=== PATIENT | female | born 1990 | race Two or more races ===

== ENCOUNTER 2025-09-22 15:12 | Inpatient (IN) | payer MEDICAID, OTHER ==
[~2025-09-22] VITALS: Ht 170.2 cm; Wt 62.3 kg
[2025-09-22] MEDS: SODIUM CHLORIDE 0.9% 1,000 ML IV ONE ×3 (16:00→22:23)
--- NOTE | 2025-09-22 16:00 | ED.PDOC ---
SOB-HPI HPI Comments 34 y/o F, presents to the ED for CC of shortness of breath. Patient states, she has been experiencing shortness of breath with associated chest pain sudden onset, this morning (09/22/25). Patient reports, to have had flu-like symptoms x1week prior to commencement of symptoms. Patient endorses, shortness of breath to worsen with ambulation. Patient denies cough, fever, chills, or palpitations. No other symptoms or modifying factors are present at this time. Chief Complaint: Shortness of Breath Time Seen by MD: 15:50 Reviewed notes: Nurses Notes, Medications, Allergies Mode of Arrival: EMS Severity: Moderate Timing: Hours Duration: Since onset Context: At Rest PE Risk Factors: None History of: None Prehospital treatment: None Modifying Factors: Nothing Associated Signs and Symptoms: None Location: Substernal Past Medical History PAST MEDICAL HISTORY: Denies Surgical History: Denies all surgeries PLATING TECHNICIAN History: Denies all PLATING TECHNICIAN Hx Family History Family History: Unknown Social History Smoker: Non-Smoker Alcohol: Denies ETOH Use Drugs: Denies Drug Use Lives In: Home Constitutional: reports: malaise; denies: chills, diaphoresis, fatigue, fever, sweats, weakness, others EENTM: denies: blurred vision, double vision, ear bleeding, ear discharge, ear drainage, ear pain, ear ringing, eye pain, eye redness, hearing loss, mouth pain, mouth swelling, nasal discharge, nose bleeding, nose congestion, nose pain, photophobia, tearing, throat pain, throat swelling, voice changes, others Respiratory: reports: shortness of breath; denies: cough, hemoptysis, orthopnea, SOB at rest, SOB with excertion, stridor, wheezing, others Cardiovascular: reports: chest pain; denies: dizzy spells, diaphoresis, Dyspnea on exertion, edema, irregular heart beat, left arm pain, lightheadedness, palpitations, PND, syncope, others Gastrointestinal: denies: abdomen distended, abdominal pain, blood streaked bowels, constipated, diarrhea, dysphagia, difficulty swallowing, hematemesis, melena, nausea, poor appetite, poor fluid intake, rectal bleeding, rectal pain, vomiting, others Genitourinary: denies: abnormal vagina bleeding, burning, dyspareunia, dysuria, flank pain, frequency, hematuria, incontinence, pain, , vagina discharge, urgency, others Neurological: denies: dizziness, fainting, headache, left sided numbness, left sided weakness, numbness, paresthesia, pre-existing deficit, right sided numbness, right sided weakness, seizure, speech problems, tingling, tremors, weakness, others Musculoskeletal: denies: back pain, gout, joint pain, joint swelling, muscle pain, muscle stiffness, neck pain, others Integumetry: denies: bruises, change in color, change in hair/nails, dryness, laceration, lesions, lumps, rash, wounds, others Allergic/Immunocompromised: denies: Difficulty Healing, Frequent Infections, Hives, Itching, others Hematologic/Lymphatic: denies: anemia, blood clots, easy bleeding, easy bruising, swollen glands, others Endocrine: denies: excessive hunger, excessive sweating, excessive thirst, excessive urination, flushing, intolerance to cold, intolerance to heat, unexplained weight gain, unexplained weight loss, others Psychiatric: denies: anxiety, bipolar disorder, depression, hopeless, panic disorder, schizophrenia, sleepless, suicidal, others All Other Systems: Reviewed and Negative Physical Exam General Appearance: Moderate Distress HEENT: Normal ENT Inspection, Pharynx Normal, TMs Normal Neck: Full Range of Motion, Non-Tender, Normal, Normal Inspection Respiratory: Other (Coarse breath sounds) Cardiovascular: No Edema, No JVD, No Murmur, No Gallop, Normal Peripheral Pulses, Tachycardia Breast Exam: Deferred Gastrointestinal: No Organomegaly, Non Tender, No Pulsatile Mass, Normal Bowel Sounds, Soft Genitalia: Deferred Pelvic: Deferred Rectal: Deferred Extremities: No calf tenderness, Normal capillary refill, Normal inspection, Normal range of motion, Non-tender, No pedal edema Musculoskeletal : Apperance: Normal Neurologic: Alert, 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 Was a procedure done?: No Differential Dx Differential Diagnosis: Anxiety, Asthma, Bronchitis, Pneumonia, Pulmonary Embolism, Pharyngitis, URI X-Ray, Labs, Meds, VS Vital Signs Date Time Temp Pulse Resp B/P (MAP) Pulse Ox O2 Delivery O2 Flow Rate FiO2 09/22/25 15:19 99.0 122 20 127/82 99 99.0 Patient alert. Complaining of shortness a breath. Unable to ambulate without being short of breath. Tachycardia. Establish intravenous access. Was given fluids. Was given steroid. Was given breathing treatment. Was given Rocephin. Was given azithromycin. Explained to the patient that she will be admitted for possible pneumonia. Time of 1ST Reevaluation: 16:20 Reevaluation 1ST: Unchanged Patient Education/Counseling: Diagnosis, Treatment Family Education/Counseling: No Family Present SEPSIS Sepsis Screen Date sepsis recognized/suspect: Sep 22, 2025 Time Sepsis recognized/suspect: 1520 Recent Procedure: No On Antibiotic Therapy: No Respiratory Rate >20: No Heart Rate >90: Yes Temp<36 C (96.8 F) or >38.3 C: No SBP <90 or MAP <65 mmHG: No New Acute Mental Status Change: No Is the patient on CPAP, BIPAP,: No Physician Orders Chest Portable (09/22/25 15:17) Troponin-I Hs (09/22/25 15:54) Complete Blood Count (09/22/25 15:54) Urinalysis (09/22/25 15:54) Basic Metabolic Panel (09/22/25 15:54) Rapid Influenza A&B (09/22/25 15:54) Sodium Chloride 0.9% (09/22/25 16:00) Ceftriaxone 1gm/50ml (Rocephin) (09/22/25 16:00) Azithromycin 500mg/ 250ml (Zithromax 50 (09/22/25 16:00) Vital Signs Date Time Temp Pulse Resp B/P (MAP) Pulse Ox O2 Delivery O2 Flow Rate FiO2 09/22/25 15:19 99.0 122 20 127/82 99 99.0 Departure 1 Departure Time of Disposition: 16:03 Impression: Primary Impression: Acute respiratory distress Additional Impression: Pneumonia Qualified Codes: J18.9 - Pneumonia, unspecified organism Disposition: ADMITTED INPATIENT Admit to: Med Surg Condition: Guarded Critical Care Note Critical Care Time?: Yes (90 min-critical care time only) Stability Stability form required: No Heart Score Heart Score: Heart Score Response (Comments) Value History N/A 0 EKG N/A 0 Age N/A 0 Risk Factors N/A 0 Troponin N/A 0 Total 0 I personally scribed for MYKEL ROMANO MD ([email or web address]) on 09/22/25 at 16:00. Electronically submitted by Rupa Sunshine ([email or web address]). MYKEL ROMANO MD Sep 22, 2025 16:00
--- NOTE | 2025-09-22 16:01 | DVH ---
CHEST RADIOGRAPH Indication: sob Technique: Single frontal view of the chest was obtained Comparison: None FINDINGS: Lines and Tubes: None Lungs: There is a 2.5 cm irregular density in the right upper lung field. Pulmonary nodule versus chr onic disease. Consider CT chest if of clinical concern. Pleura: No effusion. No pneumothorax. Cardiomediastinal contours: Unremarkable Bones: No acute osseous abnormality. IMPRESSION: 1. 2.5 cm irregular pulmonary density right upper lung field may represent fortuitous confluence of b gianluca and pulmonary densities. Can not exclude pulmonary nodule. Consider comparing with previous [facility] x-rays and/or CT of the chest.
[2025-09-22] MEDS: ALBUTEROL SULF 2.5 MG/0.5ML(0.5%) NEB SOLN NEB ONE ×2 (16:09→22:35)
[2025-09-22] MEDS: IPRATROPIUM BROM 0.5 MG/2.5ML INH SOL NEB ONE ×2 (16:09→22:36)
[2025-09-22] MEDS: LORazepam 0.5 MG TAB PO ONE (16:51)
[2025-09-22 17:17] LABS: Hematocrit 41.8 % (36.0-46.0); Hemoglobin 14.2 g/dL (12.2-16.2); Mean Corpuscular Hemoglobin 29.6 pg (28.0-32.0); Mean Corpuscular Volume 87.1 fL (80.0-100.0); Nucleated Red Blood Cells % 0.1 %
[2025-09-22 17:32] LABS: Chloride 105 mmol/L (98-107); Sodium 142 mmol/L (136-145)
[2025-09-22 17:33] LABS: Anion Gap 20 (5-15)
[2025-09-22 17:34] LABS: Calcium 9.7 mg/dL (8.7-10.4)
[2025-09-22] MEDS: LORazepam 2MG/ML-1ML VIAL IV ONE (17:36)
[2025-09-22 17:39] LABS: BUN/Creatinine Ratio 6.2 (10.0-20.0)
[2025-09-22 17:42] LABS: Carbon Dioxide 17 mmol/L (20-31); Glucose 122 mg/dL (74-106); Potassium 2.8 mmol/L (3.5-5.1)
[2025-09-22 17:45] LABS: Blood Urea Nitrogen 7 mg/dL (9-23)
[2025-09-22] MEDS: AZITHROMYCIN 500MG/ 250ML 250 ML IV ONE (17:45)
[2025-09-22] MEDS: methylPREDNISolone SOD SUCC 125 MG/2 ML VL IV ONE (17:46)
[2025-09-22 18:16] VITALS: PULSE 107; RESP 18; O2SAT 95
[2025-09-22 19:02] LABS: Lactic Acid w/Reflex 5.0 mmol/L (0.4-2.0)
[2025-09-22 19:06] LABS: COVID19 ANTIGEN SOFIA FIA NEGATIVE (NEGATIVE)
[2025-09-22] MEDS: POTASSIUM CHL 20 Meq TABLET PO ONE (19:08)
[2025-09-22] MEDS ORDERED: ACETAMINOPHEN 325 MG TAB PO PRN (21:30)
[2025-09-22] MEDS ORDERED: IPRATROPIUM BROM 0.5 MG/2.5ML INH SOL NEB PRN (21:30)
[2025-09-22] MEDS ORDERED: HYDROcodone-ACET 5/325MG TAB PO PRN (21:30)
[2025-09-22] MEDS ORDERED: ALBUTEROL SULF 2.5 MG/0.5ML(0.5%) NEB SOLN NEB PRN (21:30)
[2025-09-22] MEDS ORDERED: HYDROmorphone HCL 2 MG/ML VL/or syr IV PRN (21:30)
[2025-09-22 22:00] LABS: Urine Protein, UAD Negative (Negative)
[2025-09-22] MEDS: POTASSIUM CHL 20MEQ/100ML 100 ML IV SCH (22:22)
[2025-09-22] MEDS: ENOXAPARIN SOD 40 MG/0.4 ML SYRINGE SC SCH (22:22)
[2025-09-22 22:26] LABS: Alanine Aminotransferase 13.0 U/L (7-40); Albumin 4.3 g/dL (3.2-4.8); Alkaline Phosphatase 95.0 U/L (46-116); Total Protein 6.8 g/dL (5.7-8.2)
[2025-09-22 22:28] LABS: Amphetamine Screen, Urine Neg (NEGATIVE); Barbiturate Scree,Urine Neg (NEGATIVE); Benzodiazephine Screen, Urine Neg (NEGATIVE); Cannabinoid Screen, Urine Pos (NEGATIVE); Cocaine Screen, Urine Neg (NEGATIVE); Opiate Scree,Urine Neg (NEGATIVE); Phencyclidine Screen, Urine Neg (NEGATIVE)
[2025-09-22 22:28] LABS: Bilirubin, Direct 0.4 mg/dL (<0.3); Bilirubin, Total 1.3 mg/dL (0.2-1.0); Magnesium 1.3 mg/dL (1.6-2.6)
[2025-09-22] MEDS: DOXYCYCLINE 100MG/100ML 100 ML IV SCH (22:34)
[2025-09-22 23:10] VITALS: BP 90/55; PULSE 105; RESP 17; TEMP 98.9; O2SAT 98
--- NOTE | 2025-09-22 23:42 | DVH ---
CT Chest without intravenous contrast INDICATION: sob TECHNIQUE: Multidetector spiral CT of the chest was performed from the lung apices to the upper abdom en. Axial, coronal and sagittal multiplanar reformats were performed. Radiation Dose : 1. Chest: CTDI volume is 6.16 mGy. Dose-length product is 264.4 mGy*cm The dose indicators for CT are the volume Computed Tomography (CT) Dose Index (CTDIvol) and the Dose Length Product (DLP), and are measured in units of mGy and mGy-cm, respectively. These indicators are not patient dose, but values generated from the CT scanner acquisition factors. The report includes radiation exposure data for exposures received during this examination. Comparison: XY CHEST PORTABLE on DOS: 09/22/25 Findings: Lower neck: Unremarkable. Lungs: There are multifocal small airspace opacities in the right upper and lower lobes as well as a small rounded groundglass opacity in the left lower lobe. Pleura: No pleural effusion or pneumothorax. Heart/Vascular Structures: Normal heart size. No pericardial effusion. Lymph Nodes: No evidence of lymphadenopathy. Musculoskeletal: No abnormality demonstrated. Soft tissues: Unremarkable. Visualized Upper abdomen: Unremarkable. IMPRESSION: Multifocal small airspace opacities in right upper and lower lobes as well as small groundglass opac ity in left lower lobe, nonspecific but most likely representing pneumonia. Radiation optimization: All CT scans at this facility use at least one of these dose optimization cuate hniques: automated exposure control mA and/or kV adjustment per patient size (includes targeted exam s where dose is matched to clinical indication) or iterative reconstruction.
[2025-09-23] VITALS (11 sets, daily range): BP systolic 101–121; BP diastolic 63–85; PULSE 80–105; RESP 16–18; TEMP 96.8–98.4; O2SAT 94–99
--- NOTE | 2025-09-23 01:25 | DVHHPRES ---
History of Present Illness Resident Creating Document: KASSANDRA YANEZ RESIDENT History of Present Illness 34-year-old female with no significant past medical history has come to the emergency via ambulance with chief complaints of shortness of breath and chest pain. Patient reports that she awoke today morning with sudden shortness of breath, which has been worsening throughout the day followed by chest pain a couple of hours later, which was sudden, squeezing and cramping type, associated with cramping of all the muscles in her body including her hands and feet, constant since 2:00 p.m., lasting over 10 hours, 9.5/10 in intensity, worsening with inhalation and exhalation, with no relieving factors. Patient also reports that she has had wet cough and body ache for the past week after being exposed to her children who have been sick recently as well. She denies any palpitations, nausea, vomiting, fever, chills. On admission patient's vitals were temp 98.9, pulse 99, respiratory rate 22, BP 106/5 9, SpO2 98. We are admitting the patient for further workup and management. PMH: None PSH: None Family history: Reviewed and noncontributory Social history: patient denies drink alcohol or smoking cigarettes but admits to smoking marijuana 5-6 puffs per day Allergies: Patient can not recall PCP: [place], patient has not been to a PCP in a long while Code status: Full code Review of Systems Constitutional: Yes: Malaise; No: Fever, Chills, Sweats, Weakness, Other Eyes: No: Pain, Vision change, Conjunctivae inflammation, Eyelid inflammation, Other, Redness ENT: No: Ear pain, Ear discharge, Nose pain, Nose discharge, Nose congestion, Mouth pain, Mouth swelling, Throat pain, Throat swelling, Other Respiratory: Cough, Shortness of breath; No: Dry, SOB with excertion, Wheezing, Hemoptysis, Pleuritic Pain, Sputum, Wheezing, Other Cardiovascular: Chest Pain; No: Palpitations, Orthopnea, Paroxysmal Noc. Dyspnea, Edema, Lt Headedness, Other Gastrointestinal: No: Nausea, Vomiting, Abdominal Pain, Diarrhea, Constipation, Melena, Hematochezia, Other Genitourinary: No Dysuria, No Frequency, No Incontinence, No Hematuria, No Retention, No Other Musculoskeletal: other (Cramping of the entire body); No: neck pain, shoulder pain, arm pain, back pain, hand pain, leg pain, foot pain Skin: No: Rash, Lesions, Jaundice, Bruising, Other Neurological: No: Weakness, Numbness, Incoordination, Change in speech, Confusion, Seizures, Other Allergies: Coded Allergies: NO KNOWN ALLERGIES (Unverified , 09/22/25) Medications Current Medications Medications Dose Ordered Sig/Dwight Route Start Time Stop Time Status Last Admin Dose Admin Acetaminophen/ Hydrocodone Bitart 1 tab Q4HP PRN PO 09/22/25 21:30 Ondansetron HCl 4 mg Q4HP PRN IV 09/22/25 21:30 Acetaminophen 650 mg Q6HP PRN PO 09/22/25 21:30 Enoxaparin Sodium 40 mg DAILY SC 09/22/25 21:30 09/22/25 22:22 40 MG Lorazepam 1 mg ONCE PRN IV 09/22/25 21:30 Doxycycline Hyclate 100 ml @ 50 mls/hr Q12H IV 09/22/25 21:30 09/22/25 22:34 50 MLS/HR Ceftriaxone Sodium 50 ml @ 100 mls/hr DAILY@2100 IV 09/23/25 21:00 Ipratropium [place] 0.5 mg Q4HPRN PRN NEB 09/22/25 21:30 Albuterol 2.5 mg Q4HPRN PRN NEB 09/22/25 21:30 Hydromorphone HCl 0.25 mg Q4HPRN PRN IV 09/22/25 21:30 Potassium Chloride 100 ml @ 50 mls/hr Q2H IV 09/22/25 21:30 09/23/25 01:29 09/23/25 01:05 50 MLS/HR Exam Vital Signs Vital Signs Date Time Temp Pulse Resp B/P (MAP) Pulse Ox O2 Delivery O2 Flow Rate FiO2 09/22/25 23:10 98.9 105 17 90/55 98 98.9 09/22/25 22:35 Room Air* 0 21 Exam Pt is lying on bed General Appearance: Alert, Oriented X3, Cooperative, Not in acute distress HEENT: Atraumatic, Mucous membranes moist/pink Respiratory: Clear to auscultation, Normal air movement, left lower lobe crackles heard Cardiovascular: Regular rate, Normal S1, Normal S2, No murmurs Abdominal: Active bowel sounds, Soft, no distention, no tenderness Extremities: No edema, Normal pulses, No tenderness/swelling Skin: No Significant rash, except past surgical scars Neuro: Normal speech, sensorimotor deficits none Psych/Mental Status: Mental status NL, Mood NL 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 [employer] 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 Labs/Xrays Labs Test 09/22/25 20:30 09/22/25 18:05 09/22/25 17:09 09/22/25 15:54 Range/Units Lactic Acid Level 2.1 *H 0.4-2.0 mmol/L Urine Color Colorless Yellow Urine Clarity Clear Clear Urine pH 6.5 5.0-9.0 Urine Specific [place] 1.009 1.001-1.035 Urine Protein Negative Negative Urine Ketones 1+ H Negative Urine Blood Trace H Negative /uL Urine Nitrite Negative Negative Urine Bilirubin Negative Negative Urine Urobilinogen Normal Negative mg/dL Urine Leukocyte Esterase Trace Negative /uL Urine RBC 1 0 - 4 /hpf Urine Microscopic WBC 2 0-5 /HPF Urine Squamous Epithelial Cells Few <5 /hpf Urine Bacteria None seen None Seen /hpf Urine Mucus Few None Seen Urine Glucose Normal Normal mg/dL Urine Opiates Screen Neg NEGATIVE Urine Fentanyl Screen Neg NEGATIVE Urine Barbiturates Screen Neg NEGATIVE Urine Phencyclidine Screen Neg NEGATIVE Urine Amphetamines Screen Neg NEGATIVE Urine Benzodiazepines Screen Neg NEGATIVE Urine Cocaine Screen Neg NEGATIVE Urine Cannabinoids Screen Pos NEGATIVE White Blood Count 26.4 H 4.4-10.8 10^3/uL Red Blood Count 4.80 4.0-5.20 10^6/uL Hemoglobin 14.2 12.2-16.2 g/dL Hematocrit 41.8 36.0-46.0 % Mean Corpuscular Volume 87.1 80.0-100.0 fL Mean Corpuscular Hemoglobin 29.6 28.0-32.0 pg Mean Corpuscular Hemoglobin Concent 34.0 32.0-36.0 g/dL Red Cell Distribution Width 14.0 11.8-14.3 % Platelet Count 305 140-450 10^3/uL Mean Platelet Volume 8.5 6.9-10.8 fL Neutrophils (%) (Auto) 91.1 H 37.0-80.0 % Lymphocytes (%) (Auto) 3.4 L 10.0-50.0 % Monocytes (%) (Auto) 5.1 0.0-12.0 % Eosinophils (%) (Auto) 0.1 0.0-7.0 % Basophils (%) (Auto) 0.3 0.0-2.0 % Neutrophils # (Auto) 24.1 H 1.6-8.6 10 ^3/uL Lymphocytes # (Auto) 0.9 0.4-5.4 10 ^3/uL Monocytes # (Auto) 1.3 0-1.3 10 ^3/uL Eosinophils # (Auto) 0 0-0.8 10 ^3/uL Basophils # (Auto) 0.1 0-0.2 10 ^3/uL Nucleated Red Blood Cells 0.1 % Sodium Level 142 136-145 mmol/L Potassium Level 2.8 L 3.5-5.1 mmol/L Chloride Level 105 98-107 mmol/L Carbon Dioxide Level 17 L 20-31 mmol/L Anion Gap 20 H 5-15 Blood Urea Nitrogen 7 L 9-23 mg/dL Creatinine 1.13 H 0.550-1.02 mg/dL Glomerular Filtration Rate Calc 66 >90 mL/min BUN/Creatinine Ratio 6.2 L 10.0-20.0 Serum Glucose 122 H 74-106 mg/dL Calcium Level 9.7 8.7-10.4 mg/dL Magnesium Level 1.3 L 1.6-2.6 mg/dL Total Bilirubin 1.3 H 0.2-1.0 mg/dL Direct Bilirubin 0.4 H <0.3 mg/dL Aspartate Amino Transferase (AST) 19 13-40 U/L Alanine Aminotransferase (ALT) 13 7-40 U/L Alkaline Phosphatase 95 46-116 U/L Troponin I High Sensitivity 10 </=34 ng/L B-Type Natriuretic Peptide 62.24 0-100 pg/mL Total Protein 6.8 5.7-8.2 g/dL Albumin 4.3 3.2-4.8 g/dL Beta HCG, Quantitative 0.5 L 1.5-4.2 mIU/mL Influenza Type A Antigen Negative Negative Influenza Type B Antigen Negative Negative Test 09/22/25 00:00 Range/Units SARS-CoV-2 Antigen (Rapid) Negative NEGATIVE SEPSIS Sepsis Screen Date sepsis recognized/suspect: Sep 22, 2025 Time Sepsis recognized/suspect: 1815 Recent Procedure: No On Antibiotic Therapy: Yes Respiratory Rate >20: No Heart Rate >90: Yes Temp<36 C (96.8 F) or >38.3 C: No SBP <90 or MAP <65 mmHG: No New Acute Mental Status Change: No Is the patient on CPAP, BIPAP,: No Physician Orders Electrocardigram (09/22/25 17:23) Electrocardigram (09/22/25 18:23) Electrocardigram (09/22/25 20:23) Blood Culture (09/22/25 17:45) Admit (09/22/25 21:20) Code Status (09/22/25 21:20) Hydrocodone-Acet 5/325mg Tab ([place] 5/32 (09/22/25 21:30) Ondansetron Hcl (Zofran) (09/22/25 21:30) Complete Blood Count (09/23/25 04:00) Comprehensive Metabolic Panel (09/23/25 04:00) Condition: Unstable (09/22/25 21:20) Acetaminophen Tablet (Tylenol Tablet) (09/22/25 21:30) Enoxaparin Sodium (Lovenox) (09/22/25 21:30) Stat Ekg For Chest Pain (09/22/25 21:20) Notify Md Of Changes From Base (09/22/25 21:20) Lorazepam 2mg/Ml Inj (Ativan Inj) (09/22/25 21:30) Doxycycline 100mg/100ml (Vibramycin) (09/22/25 21:30) Ceftriaxone 1gm/50ml (Rocephin) (09/23/25 21:00) Sodium Chloride 0.9% (09/22/25 21:30) Regular Diet (09/23/25 Breakfast) Ipratropium Medneb (Atrovent Medneb) (09/22/25 21:30) Albuterol Medneb (Ventolin Medneb) (09/22/25 21:30) Respiratory Culture W/ Gs (09/22/25 21:20) Hydromorphone Injection (Dilaudid Inject (09/22/25 21:30) Lactic Acid W/ Reflex Order (09/23/25 04:00) Chest Without Contrast (09/22/25 21:20) Potassium Chl 20meq/100ml (09/22/25 21:30) Magnesium Sulfate 1gm/100ml (09/23/25 01:30) Vital Signs Date Time Temp Pulse Resp B/P (MAP) Pulse Ox O2 Delivery O2 Flow Rate FiO2 09/22/25 23:10 98.9 105 17 90/55 98 98.9 09/22/25 23:00 98.5 100 15 108/67 (81) 99 98.5 09/22/25 22:35 17 97 Room Air* 0 21 09/22/25 22:14 99 22 90/55 (67) 98 09/22/25 22:00 98.2 86 21 106/59 (75) 98 98.2 09/22/25 21:35 105 09/22/25 21:00 98.9 99 22 90/55 (67) 98 98.9 09/22/25 19:30 99.3 100 14 98/56 (70) 99 99.3 09/22/25 18:16 107 18 95 Nasal Cannula* 2 28 09/22/25 18:16 99.6 107 18 107/89 (95) 95 99.6 09/22/25 18:16 18 95 Nasal Cannula* 2 28 Laboratory Tests Test 09/22/25 17:09 09/22/25 18:30 09/22/25 20:30 White Blood Count 26.4 10^3/uL (4.4-10.8) H Lactic Acid Level 5.0 mmol/L (0.4-2.0) *H 2.1 mmol/L (0.4-2.0) *H Medications Medications Dose Ordered Sig/Dwight Route Start Time Stop Time Status Last Admin Dose Admin Albuterol 2.5 mg ONCE ONCE NEB 09/22/25 21:30 09/22/25 22:14 DC 09/22/25 22:35 2.5 MG Albuterol 5 mg ONCE ONCE NEB 09/22/25 16:00 09/22/25 16:01 DC 09/22/25 16:09 5 MG Azithromycin 250 ml @ 125 mls/hr ONCE ONCE IV 09/22/25 16:00 09/22/25 17:59 DC 09/22/25 18:55 125 MLS/HR Ceftriaxone Sodium 50 ml @ 100 mls/hr ONCE ONCE IV 09/22/25 16:00 09/22/25 16:29 DC 09/22/25 18:20 100 MLS/HR Doxycycline Hyclate 100 ml @ 50 mls/hr Q12H IV 09/22/25 21:30 09/22/25 22:34 50 MLS/HR Enoxaparin Sodium 40 mg DAILY SC 09/22/25 21:30 09/22/25 22:22 40 MG Ipratropium [place] 0.5 mg ONCE ONCE NEB 09/22/25 16:00 09/22/25 16:01 DC 09/22/25 16:09 0.5 MG Ipratropium [place] 0.5 mg ONCE ONCE NEB 09/22/25 21:30 09/22/25 22:14 DC 09/22/25 22:36 0.5 MG Lorazepam 1 mg ONCE ONCE IV 09/22/25 17:30 09/22/25 17:31 DC 09/22/25 17:36 1 MG Lorazepam 1 mg ONCE ONCE PO 09/22/25 16:45 09/22/25 16:47 DC 09/22/25 16:51 1 MG Methylprednisolone Sodium Succinate 125 mg ONCE ONCE IV 09/22/25 16:00 09/22/25 16:01 DC 09/22/25 17:46 125 MG Potassium Chloride 20 meq ONCE ONCE PO 09/22/25 19:15 09/22/25 19:16 DC 09/22/25 19:08 20 MEQ Potassium Chloride 100 ml @ 50 mls/hr Q2H IV 09/22/25 21:30 09/23/25 01:29 09/23/25 01:05 50 MLS/HR Sodium Chloride 1,000 ml @ 100 mls/hr Q10H ONCE IV 09/22/25 21:30 09/23/25 07:29 09/22/25 22:23 100 MLS/HR Sodium Chloride 1,000 ml @ 1,000 mls/hr Q1H ONCE IV 09/22/25 16:00 09/22/25 16:59 DC 09/22/25 16:00 1,000 MLS/HR Sodium Chloride 1,000 ml @ 1,000 mls/hr Q1H ONCE IV 09/22/25 19:15 09/22/25 20:14 DC 09/22/25 19:08 1,000 MLS/HR Assessment/Plan Assessment/Plan #Sepsis due to possible Gram-positive / negative pneumonia #Acute hypoxic respiratory failure due to above #pleuritic-type chest pain due to above -Chest x-ray shows 2.5 cm irregular pulmonary density right upper lung field may represent fortuitous confluence of bony and pulmonary densities. Can not exclude pulmonary nodule. Consider comparing with previous chest x-rays and/or CT of the chest -CT scan shows: Multifocal small airspace opacities in right upper and lower lobes as well as small ground glass opacity in left lower lobe, nonspecific but most likely representing pneumonia -Sputum culture -Blood culture -lactic acid 5.0> 2.1 -Urine analysis normal -COVID and influenza tests- negative -IV fluids normal saline -Zofran 4 mg IV q.4 PRN -pain management -BNP 62.24 -tropes negative -IV ceftriaxone 1 g daily -IV doxycycline 100 mg b.i.d. daily -Med nebulization albuterol 2.5 mg q.4 PRN -Med nebulization ipratropium bromide q.4 PRN -beta-hCG negative #Hypokalemia #Hypomagnesemia -Repleted #JIM due to VMN -IV fluids given -Monitor -Avoid any nephrotoxic agents #Substance abuse, cannabinoid -UDS positive for cannabinoids -patient has been counseled extensively on need of cessation and the harms cannabinoids can cause to health for over 8 minutes #Anxiety disorder -Ativan as needed, during blood withdrawal DVT prophylaxis: Lovenox 40 mg subcutaneously daily Diet: regular diet Goals of care discussed with the patient for more than 27 minutes: Full code status Case discussed with Dr. Grier, patient Plan discussed with: Patient My Orders Orders - KASSANDRA YANEZ RESIDENT Procedure Category Date Status Time Admit ADMIT 09/22/25 Transmitted 21:20 Code Status CODE 09/22/25 Transmitted 21:20 Hydrocodone-Acet PHA 09/22/25 In Process 5/325mg Tab ([place] 21:30 Ondansetron Hcl PHA 09/22/25 In Process (Zofran) 21:30 Complete Blood Count LAB 09/23/25 Logged 04:00 Comprehensive LAB 09/23/25 Logged Metabolic Panel 04:00 Condition: Unstable DIONNA 09/22/25 In Process 21:20 Acetaminophen Tablet PHA 09/22/25 In Process (Tylenol Tablet) 21:30 Enoxaparin Sodium PHA 09/22/25 In Process (Lovenox) 21:30 Stat Ekg For Chest DIONNA 09/22/25 In Process Pain 21:20 Notify Md Of Changes DIONNA 09/22/25 In Process From Base 21:20 Lorazepam 2mg/Ml Inj PHA 09/22/25 In Process (Ativan Inj) 21:30 Doxycycline PHA 09/22/25 In Process 100mg/100ml 21:30 Ceftriaxone 1gm/50ml PHA 09/23/25 In Process (Rocephin) 21:00 Sodium Chloride 0.9% PHA 09/22/25 In Process 21:30 Regular Diet DIET 09/23/25 Transmitted Breakfast Ipratropium Medneb PHA 09/22/25 In Process (Atrovent Medneb) 21:30 Albuterol Medneb PHA 09/22/25 In Process (Ventolin Medneb) 21:30 Respiratory Culture JOSE 09/22/25 Logged W/ Gs 21:20 Hydromorphone PHA 09/22/25 In Process Injection (Dilaudid 21:30 Lactic Acid W/ Reflex LAB 09/23/25 Logged Order 04:[address] 09/22/25 Resulted 21:20 Potassium Chl PHA 09/22/25 In Process 20meq/100ml 21:30 Magnesium Sulfate PHA 09/23/25 In Process 1gm/100ml 01:30 Date of Service: Sep 23, 2025 Billing Provider: PUJA GRIER MD Common Visit Codes: 20824-QKJPMDO INP/OBS CARE (HIGH) Secondary Visit Codes: 35243-[id number] CARE PLAN 30 MINUTES KASSANDRA YANEZ RESIDENT Sep 23, 2025 01:25
[2025-09-23] MEDS ORDERED: MAGNESIUM SULFATE 1GM/100ML 100 ML IV ONE (01:30)
[2025-09-23] MEDS: MAGNESIUM SULFATE 1GM/100ML 100 ML IV SCH ×2 (02:00→05:41)
[2025-09-23] MEDS: LORazepam 2MG/ML-1ML VIAL IV PRN (05:21)
[2025-09-23 06:35] LABS: Hematocrit 37.8 % (36.0-46.0); Hemoglobin 12.7 g/dL (12.2-16.2); Mean Corpuscular Hemoglobin 29.2 pg (28.0-32.0); Mean Corpuscular Volume 86.7 fL (80.0-100.0); Nucleated Red Blood Cells % 0.0 %
[2025-09-23 06:58] LABS: Albumin 4.1 g/dL (3.2-4.8); Alkaline Phosphatase 92 U/L (46-116); Anion Gap 10 (5-15); BUN/Creatinine Ratio 7.8 (10.0-20.0); Bilirubin, Total 0.9 mg/dL (0.2-1.0); Carbon Dioxide 21 mmol/L (20-31); Potassium 4.5 mmol/L (3.5-5.1); Sodium 140 mmol/L (136-145); Total Protein 6.8 g/dL (5.7-8.2)
[2025-09-23 07:00] LABS: Alanine Aminotransferase < 9 U/L (7-40); Blood Urea Nitrogen 6 mg/dL (9-23); Calcium 8.5 mg/dL (8.7-10.4); Chloride 109 mmol/L (98-107); Glucose 126 mg/dL (74-106)
--- NOTE | 2025-09-23 07:09 | ECG ---
[facility] Test Date: 2025-09-22 Test Time: 21:35:02 Pat Name: MARLINE LLANES Department: [facility] ED Patient ID: [facility]-[id number] Room: 0223T B Gender: F Email Manager: : 1990 Requested By: MYKEL ROMANO Order Number: [id number] Reading MD: Gus Woods Measurements Intervals [place] Rate: 105 P: 45 UT: 105 QRS: 84 QRSD: 92 T: -85 QT: 337 QTc: 446 Interpretive Statements Sinus tachycardia Ventricular premature complex Borderline repolarization abnormality Electronically Signed On 09-24-2025 13:37:54 PST by Gsu Woods Please click the below link to view image of tracing.
[2025-09-23] MEDS: ONDANSETRON HCL 4 MG/2 ML VIAL IV PRN (13:44)
--- NOTE | 2025-09-23 16:27 | DVHPNRES ---
Progress Note Date Seen: Sep 23, 2025 Resident Creating Document: CHAYA PURCELL RESIDENT Medical Necessity Reason Pt with a Central, PICC or Fol: No Subjective Review of Systems Brief history on arrival: This is a 34-year-old female with no significant past medical history has come to the emergency via ambulance with chief complaints of shortness of breath, cough and chest pain. Patient reports that she awoke today morning with sudden shortness of breath, which has been worsening throughout the day followed by chest pain a couple of hours later, which was sudden, squeezing and cramping type, associated with cramping of all the muscles in her body including her hands and feet, constant since 2:00 p.m., lasting over 10 hours, 9.5/10 in intensity, worsening with inhalation and exhalation, with no relieving factors. She also complained of one-week history of cough, which was initially dry, subsequently productive cough with a cupful sputum. She also complained of myalgia and was exposed to sick children recently. She denies any palpitations, nausea, vomiting, fever, chills. PMH: None PSH: None Family history: Reviewed and noncontributory Social history: patient denies drink alcohol or smoking cigarettes but admits to smoking marijuana 5-6 puffs per day Allergies: Patient can not recall PCP: [place], patient has not been to a PCP in a long while Code status: Full code ROS: Constitutional: Denies weight loss, fever and chills. HEENT: Denies changes in vision and hearing. Respiratory: Shortness of breadth, cough, chest pain. Cardiovascular: Denies chest discomfort or palpitations GI: Denies abdominal pain, nausea, vomiting and diarrhea. : Denies dysuria and urinary frequency. Musculoskeletal: Denies myalgias and joint pain Skin: Denies rash and pruritus. Neurological: Denies dizziness, headache, vision or hearing problems 09/23/2025: Patient was seen at bedside today. No new complaints. Objective vital signs Vital Sign Date Time Temp Pulse Resp B/P (MAP) Pulse Ox O2 Delivery O2 Flow Rate FiO2 09/23/25 13:00 96.8 86 18 121/80 (94) 99 96.8 09/23/25 09:55 Room Air* 0 21 Total Intake and Output 09/22/25 09/22/25 09/23/25 15:00 23:00 07:00 Intake Total 1300 ml 350 ml Output Total 2 ml Balance 1300 ml 348 ml medications Current Medications Medications Dose Ordered Sig/Dwight Route Start Time Stop Time Status Last Admin Dose Admin Acetaminophen/ Hydrocodone Bitart 1 tab Q4HP PRN PO 09/22/25 21:30 Ondansetron HCl 4 mg Q4HP PRN IV 09/22/25 21:30 09/23/25 13:44 4 MG Acetaminophen 650 mg Q6HP PRN PO 09/22/25 21:30 Enoxaparin Sodium 40 mg DAILY SC 09/22/25 21:30 09/22/25 22:22 40 MG Lorazepam 1 mg ONCE PRN IV 09/22/25 21:30 09/23/25 05:21 1 MG Ceftriaxone Sodium 50 ml @ 100 mls/hr DAILY@2100 IV 09/23/25 21:00 Ipratropium [place] 0.5 mg Q4HPRN PRN NEB 09/22/25 21:30 Albuterol 2.5 mg Q4HPRN PRN NEB 09/22/25 21:30 Hydromorphone HCl 0.25 mg Q4HPRN PRN IV 09/22/25 21:30 Doxycycline Hyclate 100 ml @ 50 mls/hr Q12H IV 09/23/25 21:30 Examination General: Patient alert and oriented in person, place and time. Patient following commands. HEENT: Normocephalic, atraumatic, dry mucous membranes Respiratory/pulmonary: Bilateral wheeze, rhonchi heard Cardiovascular: Normal heart sounds S1 and S2 with no associated murmurs Abdomen: Tenderness on deep palpation in lower abdomen Extremities: There is no peripheral edema present at the lower extremities. Peripheral Pulses: 3+ Radial (R). 3+ Radial (L). 3+ Dorsalis pedis (R). 3+ Dorsalis pedis(L) Skin: No rashes or pruritus, there is no sacral edema present at this time. Neurological: Intact cranial nerves with no focal neurologic deficits laboratory and microbiology Laboratory Tests 09/23/25 05:38 Test 09/23/25 05:38 Range/Units Serum Glucose 126 H 74-106 mg/dL Labs and/or images reviewed: Labs reviewed by me, Image(s) reviewed by me Problem List/Assessment/Plan Problem List/Assessment/Plan Sepsis due to possible Gram-positive / negative community-acquired pneumonia Acute hypoxic respiratory failure due to above Pleuritic chest pain due to above Sinus tachycardia Initial labs show lactic acidosis, WNL now Chest x-ray shows 2.5 cm irregular pulmonary density right upper lung field may represent fortuitous confluence of bony and pulmonary densities. Can not exclude pulmonary nodule. Consider comparing with previous chest x-rays and/or CT of the chest CT scan shows: Multifocal small airspace opacities in right upper and lower lobes as well as small ground glass opacity in left lower lobe, nonspecific but most likely representing pneumonia Sputum, blood culture Urine analysis normal COVID and influenza tests- negative Supportive management with IV fluids, Zofran, pain management Troponins negative Continue IV ceftriaxone, doxycycline Med nebulization albuterol 2.5 mg q.4 PRN Med nebulization ipratropium bromide q.4 PRN Beta-hCG negative Hypokalemia Hypomagnesemia Repleted Monitor BMP JIM due to VMN IV fluids given Monitor Avoid any nephrotoxic agents Substance abuse, cannabinoid UDS positive for cannabinoids Patient has been counseled extensively on need of cessation and the harms cannabinoids can cause to health for over 12 minutes Anxiety disorder Ativan as needed, during blood withdrawal DIET: Regular DVT PROPHYLAXIS: Lovenox GI PROPHYLAXIS: Protonix CODE STATUS: Goals of care discussed with patient at bedside for more than 25 minutes. Full code DISPOSITION: Med/surge This medical document was created using an electronic medical record system with [employer] direct computerized dictation system. Although this document has been carefully reviewed, there may still be some phonetic and typographical errors. These areas are purely typographical due to imperfections of the software programs, and do not reflect any compromise in the patient's medical care. Patient's status and plan discussed with the patient. Case discussed with Dr. Forbes Plan discussed with: Patient, Other (Nurses) My Orders My Orders Orders - CHAYA PURCELL RESIDENT Procedure Category Date Status Time Sputum Induction RT 09/23/25 Logged 10:26 Respiratory Culture JOSE 09/23/25 Logged W/ Gs 10:26 Schedule For Dc DIONNA 09/23/25 In Process Clinic F/U 13:03 Date of Service: Sep 23, 2025 Billing Provider: BRET FORBES MD Common Visit Codes: [id number] INP/OBS CARE(HIGH) CHAYA PURCELL RESIDENT Sep 23, 2025 16:27 BRET FORBES MD Sep 23, 2025 21:16
[2025-09-23] MEDS: PANTOPRAZOLE 40 MG/10 ML VIAL INJ IV ONE (17:31)
[2025-09-23] MEDS: MELATONIN 5 MG TAB PO ONE (21:50)
[2025-09-23] MEDS: DOXYCYCLINE 100MG/100ML 100 ML IV SCH (22:28)
[2025-09-24 01:00] VITALS: BP 93/59; PULSE 73; RESP 18; TEMP 98.4; O2SAT 98
[2025-09-24 05:00] VITALS: BP 101/39; PULSE 56; RESP 17; TEMP 98.6; O2SAT 98
[2025-09-24 07:43] LABS: Anion Gap 12 (5-15); Carbon Dioxide 23 mmol/L (20-31); Chloride 106 mmol/L (98-107); Potassium 4.1 mmol/L (3.5-5.1); Sodium 141 mmol/L (136-145)
[2025-09-24 07:44] LABS: Calcium 9.0 mg/dL (8.7-10.4)
[2025-09-24 07:47] LABS: Hematocrit 40.5 % (36.0-46.0); Hemoglobin 13.8 g/dL (12.2-16.2); Mean Corpuscular Hemoglobin 30.3 pg (28.0-32.0); Mean Corpuscular Volume 88.8 fL (80.0-100.0); Nucleated Red Blood Cells % 0.0 %
[2025-09-24 07:49] LABS: BUN/Creatinine Ratio 7.0 (10.0-20.0); Glucose 68 mg/dL (74-106)
[2025-09-24 07:51] LABS: Blood Urea Nitrogen 6 mg/dL (9-23)
[2025-09-24 08:00] VITALS: PULSE 55; O2SAT 99
[2025-09-24 08:15] VITALS: O2SAT 99
[2025-09-24 09:00] VITALS: BP 101/53; PULSE 78; RESP 20; TEMP 98.5; O2SAT 99
[2025-09-24] MEDS ORDERED: ALPRAZolam 0.25 MG TAB PO ONE (09:00)
--- NOTE | 2025-09-24 09:01 | DVHPNRES ---
Progress Note Date Seen: Sep 24, 2025 Resident Creating Document: CHAYA PURCELL RESIDENT Medical Necessity Reason Pt with a Central, PICC or Fol: No Subjective Review of Systems Brief history on arrival: This is a 34-year-old female with no significant past medical history has come to the emergency via ambulance with chief complaints of shortness of breath, cough and chest pain. Patient reports that she awoke today morning with sudden shortness of breath, which has been worsening throughout the day followed by chest pain a couple of hours later, which was sudden, squeezing and cramping type, associated with cramping of all the muscles in her body including her hands and feet, constant since 2:00 p.m., lasting over 10 hours, 9.5/10 in intensity, worsening with inhalation and exhalation, with no relieving factors. She also complained of one-week history of cough, which was initially dry, subsequently productive cough with a cupful sputum. She also complained of myalgia and was exposed to sick children recently. She denies any palpitations, nausea, vomiting, fever, chills. PMH: None PSH: None Family history: Reviewed and noncontributory Social history: patient denies drink alcohol or smoking cigarettes but admits to smoking marijuana 5-6 puffs per day Allergies: Patient can not recall PCP: [place], patient has not been to a PCP in a long while Code status: Full code ROS: Constitutional: Denies weight loss, fever and chills. HEENT: Denies changes in vision and hearing. Respiratory: Shortness of breadth, cough, chest pain. Cardiovascular: Denies chest discomfort or palpitations GI: Denies abdominal pain, nausea, vomiting and diarrhea. : Denies dysuria and urinary frequency. Musculoskeletal: Denies myalgias and joint pain Skin: Denies rash and pruritus. Neurological: Denies dizziness, headache, vision or hearing problems 09/23/2025: No new complaints. 09/24/25: Patient was seen at bedside today. Complains of burning pain in her limb d/t IV doxycyxline, will try IV azithromycin. Continue IV abx in context of high WBC count. Objective vital signs Vital Sign Date Time Temp Pulse Resp B/P (MAP) Pulse Ox O2 Delivery O2 Flow Rate FiO2 09/24/25 08:00 55 99 Room Air* 0 21 09/24/25 05:00 98.6 17 101/39 (59) 98.6 Total Intake and Output 09/23/25 09/23/25 09/24/25 15:00 23:00 07:00 Intake Total 300 ml 700 ml 1300 ml Balance 300 ml 700 ml 1300 ml medications Current Medications Medications Dose Ordered Sig/Dwight Route Start Time Stop Time Status Last Admin Dose Admin Acetaminophen/ Hydrocodone Bitart 1 tab Q4HP PRN PO 09/22/25 21:30 Ondansetron HCl 4 mg Q4HP PRN IV 09/22/25 21:30 09/23/25 13:44 4 MG Acetaminophen 650 mg Q6HP PRN PO 09/22/25 21:30 Enoxaparin Sodium 40 mg DAILY SC 09/22/25 21:30 09/22/25 22:22 40 MG Lorazepam 1 mg ONCE PRN IV 09/22/25 21:30 09/23/25 05:21 1 MG Ceftriaxone Sodium 50 ml @ 100 mls/hr DAILY@2100 IV 09/23/25 21:00 09/23/25 21:50 100 MLS/HR Ipratropium [place] 0.5 mg Q4HPRN PRN NEB 09/22/25 21:30 Albuterol 2.5 mg Q4HPRN PRN NEB 09/22/25 21:30 Hydromorphone HCl 0.25 mg Q4HPRN PRN IV 09/22/25 21:30 Doxycycline Hyclate 100 ml @ 50 mls/hr Q12H IV 09/23/25 21:30 09/23/25 22:28 50 MLS/HR Pantoprazole Sodium 40 mg DAILY IV 09/24/25 10:00 Examination General: Patient alert and oriented in person, place and time. Patient following commands. HEENT: Normocephalic, atraumatic, dry mucous membranes Respiratory/pulmonary: Lung sounds are clear Cardiovascular: Normal heart sounds S1 and S2 with no associated murmurs Abdomen: Tenderness on deep palpation in lower abdomen Extremities: There is no peripheral edema present at the lower extremities. Peripheral Pulses: 3+ Radial (R). 3+ Radial (L). 3+ Dorsalis pedis (R). 3+ Dorsalis pedis(L) Skin: No rashes or pruritus, there is no sacral edema present at this time. Neurological: Intact cranial nerves with no focal neurologic deficits laboratory and microbiology Laboratory Tests 09/24/25 05:47 Test 09/24/25 05:47 Range/Units Serum Glucose 68 L 74-106 mg/dL Microbiology Date/Time Source Procedure Growth Status 09/22/25 18:17 Blood Blood Culture - Preliminary NO GROWTH AFTER 24 HOURS OF INCUBATION. Resulted Problem List/Assessment/Plan Problem List/Assessment/Plan Sepsis due to possible Gram-positive / negative community-acquired pneumonia Acute hypoxic respiratory failure due to above Pleuritic chest pain due to above Sinus tachycardia Initial labs show lactic acidosis, neutrophilic leukocytosis Chest x-ray shows 2.5 cm irregular pulmonary density right upper lung field may represent fortuitous confluence of bony and pulmonary densities. Can not exclude pulmonary nodule. Consider comparing with previous chest x-rays and/or CT of the chest CT scan shows: Multifocal small airspace opacities in right upper and lower lobes as well as small ground glass opacity in left lower lobe, nonspecific but most likely representing pneumonia Sputum, blood culture Urine analysis normal COVID and influenza tests- negative Supportive management with IV fluids, Zofran, pain management Troponins negative Med neb treatment with albuterol, ipratropium Continue IV ceftriaxone. IV doxycycline switch to IV azithromycin in context of patient complaining of vascular irritation. Hypokalemia Hypomagnesemia Repleted Monitor BMP JIM due to VMN IV fluids given Monitor Avoid any nephrotoxic agents Substance abuse, cannabinoid UDS positive for cannabinoids Patient has been counseled extensively on need of cessation and the harms cannabinoids can cause to health for over 12 minutes Anxiety disorder Ativan as needed, during blood withdrawal DIET: Regular DVT PROPHYLAXIS: Lovenox GI PROPHYLAXIS: Protonix CODE STATUS: Goals of care discussed with patient at bedside for more than 25 minutes. Full code DISPOSITION: Med/surge This medical document was created using an electronic medical record system with [employer] direct computerized dictation system. Although this document has been carefully reviewed, there may still be some phonetic and typographical errors. These areas are purely typographical due to imperfections of the software programs, and do not reflect any compromise in the patient's medical care. Patient's status and plan discussed with the patient. Case discussed with Dr. Forbes Plan discussed with: Patient, Other (Nurses) My Orders My Orders Orders - CHAYA PURCELL RESIDENT Procedure Category Date Status Time Sputum Induction RT 09/23/25 Logged 10:26 Respiratory Culture JOSE 09/23/25 Logged W/ Gs 10:26 Schedule For Dc DIONNA 09/23/25 In Process Clinic F/U 13:03 Pantoprazole PHA 09/24/25 In Process (Protonix) 10:00 Azithromycin 500mg/ PHA 09/24/25 Transmitted 250ml (Zithromax 50 10:00 Alprazolam Tablet PHA 09/24/25 Transmitted (Xanax Tablet) 09:00 Dietary Evaluation Review Comments: Monitor PO intake, lab values, weight trend, and I/O Expected Outcomes/Goals: Intake to meet >75% estimated needs FU 5-7 days Date of Service: Sep 24, 2025 Billing Provider: BRET FORBES MD Common Visit Codes: [id number] INP/OBS CARE(HIGH) CHAYA PURCELL RESIDENT Sep 24, 2025 09:01
[2025-09-24] MEDS ORDERED: LEVO750T40 PO (09:53)
[2025-09-24] MEDS: AZITHROMYCIN 500MG/ 250ML 250 ML IV SCH (10:00)
[2025-09-24] MEDS: PANTOPRAZOLE 40 MG/10 ML VIAL INJ IV SCH (10:00)
--- NOTE | 2025-09-24 11:52 | DVHDSRES ---
Discharge Summary Date of Admission Resident Creating Document: CHAYA PURCELL RESIDENT Sep 22, 2025 at 21:20 Date of Discharge: Sep 24, 2025 Labs/Diagnostic Data: Laboratory Results Test 09/24/25 05:47 09/23/25 06:09 09/23/25 05:38 09/22/25 18:05 White Blood Count 16.1 10^3/uL (4.4-10.8) Red Blood Count 4.56 10^6/uL (4.0-5.20) Hemoglobin 13.8 g/dL (12.2-16.2) Hematocrit 40.5 % (36.0-46.0) Mean Corpuscular Volume 88.8 fL (80.0-100.0) Mean Corpuscular Hemoglobin 30.3 pg (28.0-32.0) Mean Corpuscular Hemoglobin Concent 34.1 g/dL (32.0-36.0) Red Cell Distribution Width 14.3 % (11.8-14.3) Platelet Count 270 10^3/uL (140-450) Mean Platelet Volume 9.2 fL (6.9-10.8) Neutrophils (%) (Auto) 81.7 % (37.0-80.0) Lymphocytes (%) (Auto) 12.7 % (10.0-50.0) Monocytes (%) (Auto) 4.5 % (0.0-12.0) Eosinophils (%) (Auto) 0.5 % (0.0-7.0) Basophils (%) (Auto) 0.6 % (0.0-2.0) Neutrophils # (Auto) 13.2 10 ^3/uL (1.6-8.6) Lymphocytes # (Auto) 2.0 10 ^3/uL (0.4-5.4) Monocytes # (Auto) 0.7 10 ^3/uL (0-1.3) Eosinophils # (Auto) 0.1 10 ^3/uL (0-0.8) Basophils # (Auto) 0.1 10 ^3/uL (0-0.2) Nucleated Red Blood Cells 0.0 % Sodium Level 141 mmol/L (136-145) Potassium Level 4.1 mmol/L (3.5-5.1) Chloride Level 106 mmol/L (98-107) Carbon Dioxide Level 23 mmol/L (20-31) Anion Gap 12 (5-15) Blood Urea Nitrogen 6 mg/dL (9-23) Creatinine 0.86 mg/dL (0.550-1.02) Glomerular Filtration Rate Calc 91 mL/min (>90) BUN/Creatinine Ratio 7.0 (10.0-20.0) Serum Glucose 68 mg/dL (74-106) Calcium Level 9.0 mg/dL (8.7-10.4) Thyroid Stimulating Hormone (TSH) 10.46 uIU/mL (0.55-4.78) Lactic Acid Level 1.1 mmol/L (0.4-2.0) Magnesium Level 1.7 mg/dL (1.6-2.6) Total Bilirubin 0.9 mg/dL (0.2-1.0) Aspartate Amino Transferase (AST) 14 U/L (13-40) Alanine Aminotransferase (ALT) < 9 U/L (7-40) Alkaline Phosphatase 92 U/L (46-116) Total Protein 6.8 g/dL (5.7-8.2) Albumin 4.1 g/dL (3.2-4.8) Urine Color Colorless (Yellow) Urine Clarity Clear (Clear) Urine pH 6.5 (5.0-9.0) Urine Specific [place] 1.009 (1.001-1.035) Urine Protein Negative (Negative) Urine Ketones 1+ (Negative) Urine Blood Trace /uL (Negative) Urine Nitrite Negative (Negative) Urine Bilirubin Negative (Negative) Urine Urobilinogen Normal mg/dL (Negative) Urine Leukocyte Esterase Trace /uL (Negative) Urine RBC 1 /hpf (0 - 4) Urine Microscopic WBC 2 /HPF (0-5) Urine Squamous Epithelial Cells Few /hpf (<5) Urine Bacteria None seen /hpf (None Seen) Urine Mucus Few (None Seen) Urine Glucose Normal mg/dL (Normal) Urine Opiates Screen Neg (NEGATIVE) Urine Fentanyl Screen Neg (NEGATIVE) Urine Barbiturates Screen Neg (NEGATIVE) Urine Phencyclidine Screen Neg (NEGATIVE) Urine Amphetamines Screen Neg (NEGATIVE) Urine Benzodiazepines Screen Neg (NEGATIVE) Urine Cocaine Screen Neg (NEGATIVE) Urine Cannabinoids Screen Pos (NEGATIVE) Test 09/22/25 17:09 09/22/25 15:54 09/22/25 00:00 Direct Bilirubin 0.4 mg/dL (<0.3) Troponin I High Sensitivity 10 ng/L (</=34) B-Type Natriuretic Peptide 62.24 pg/mL (0-100) Beta HCG, Quantitative 0.5 mIU/mL (1.5-4.2) Influenza Type A Antigen Negative (Negative) Influenza Type B Antigen Negative (Negative) SARS-CoV-2 Antigen (Rapid) Negative (NEGATIVE) Other Laboratory Tests 09/24/25 05:47 Brief Hx & Hospital Course: Brief history on arrival: This is a 34-year-old female with no significant past medical history has come to the emergency via ambulance with chief complaints of shortness of breath, cough and chest pain. Patient reports that she awoke today morning with sudden shortness of breath, which has been worsening throughout the day followed by chest pain a couple of hours later, which was sudden, squeezing and cramping type, associated with cramping of all the muscles in her body including her hands and feet, constant since 2:00 p.m., lasting over 10 hours, 9.5/10 in intensity, worsening with inhalation and exhalation, with no relieving factors. She also complained of one-week history of cough, which was initially dry, subsequently productive cough with a cupful sputum. She also complained of myalgia and was exposed to sick children recently. She denies any palpitations, nausea, vomiting, fever, chills. Hospital course: Patient had dry mucous membranes and crackle, rhonchi on arrival. Initial labs show lactic acidosis, neutrophilic leukocytosis. Chest x-ray shows 2.5 cm irregular pulmonary density right upper lung field may represent fortuitous confluence of bony and pulmonary densities. Can not exclude pulmonary nodule. We ordered CT scan, showing multifocal small airspace opacities in right upper and lower lobes as well as small ground glass opacity in left lower lobe, nonspecific but most likely representing pneumonia. Preliminary blood culture shows no growth. Her lungs are clear to auscultation today, WBS is trending down, JIM has resolved. Patient was counseled on the benefits of staying and risks of leaving AMA, patient demonstrated understanding of risks of leaving and benefits of staying on multiple occasions. Patient was adamant on going AMA, and was therefore discharged her oral antibiotics and was asked to follow- up in discharge clinic. Patient was also asked to follow up with PCP in 1 week. Conditions managed during stay: Sepsis due to possible Gram-positive / negative community-acquired pneumonia Acute hypoxic respiratory failure due to above Pleuritic chest pain due to above Sinus tachycardia Hypokalemia, resolved Hypomagnesemia, resolved JIM due to VMN, resolved Substance abuse, cannabinoid Anxiety disorder Plan: Complete antibiotic course with Levofloxacin for 7 days Follow up with PCP in 1 week Follow up in discharge clinic in one week Operations or Procedures CT Chest without intravenous contrast INDICATION: sob TECHNIQUE: Multidetector spiral CT of the chest was performed from the lung apices to the upper abdomen. Axial, coronal and sagittal multiplanar reformats were performed. Radiation Dose : 1. Chest: CTDI volume is 6.16 mGy. Dose-length product is 264.4 mGy*cm The dose indicators for CT are the volume Computed Tomography (CT) Dose Index (CTDIvol) and the Dose Length Product (DLP), and are measured in units of mGy and mGy-cm, respectively. These indicators are not patient dose, but values generated from the CT scanner acquisition factors. The report includes radiation exposure data for exposures received during this examination. Comparison: XY CHEST PORTABLE on DOS: 09/22/25 Findings: Lower neck: Unremarkable. Lungs: There are multifocal small airspace opacities in the right upper and lower lobes as well as a small rounded groundglass opacity in the left lower lobe. Pleura: No pleural effusion or pneumothorax. Heart/Vascular Structures: Normal heart size. No pericardial effusion. Lymph Nodes: No evidence of lymphadenopathy. Musculoskeletal: No abnormality demonstrated. Soft tissues: Unremarkable. Visualized Upper abdomen: Unremarkable. IMPRESSION: Multifocal small airspace opacities in right upper and lower lobes as well as small groundglass opacity in left lower lobe, nonspecific but most likely representing pneumonia. Radiation optimization: All CT scans at this facility use at least one of these dose optimization techniques: automated exposure control mA and/or kV adjustment per patient size (includes targeted exams where dose is matched to clinical indication) or iterative reconstruction. ------ CHEST RADIOGRAPH Indication: sob Technique: Single frontal view of the chest was obtained Comparison: None FINDINGS: Lines and Tubes: None Lungs: There is a 2.5 cm irregular density in the right upper lung field. Pulmonary nodule versus chronic disease. Consider CT chest if of clinical concern. Pleura: No effusion. No pneumothorax. Cardiomediastinal contours: Unremarkable Bones: No acute osseous abnormality. IMPRESSION: 1. 2.5 cm irregular pulmonary density right upper lung field may represent fortuitous confluence of bony and pulmonary densities. Can not exclude pulmonary nodule. Consider comparing with previous chest x-rays and/or CT of the chest. Condition at Discharge: Fair Final Diagnosis/Problems List Sepsis due to possible Gram-positive / negative community-acquired pneumonia Acute hypoxic respiratory failure due to above Pleuritic chest pain due to above Sinus tachycardia Hypokalemia, resolved Hypomagnesemia, resolved JIM due to VMN, resolved Substance abuse, cannabinoid Anxiety disorder Discharge Disposition: Home Discharge Instruct/Medications Diet: Regular Activity: No Restrictions, As Tolerated Follow Up/Referral: F/U IN [place] CL[facility]IC Medications: LEVOFLOXACIN 750MG PO DAILY X 7 DAYS New Medications: Levofloxacin Hemihydrate (Levofloxacin) 750 Mg Tab 1 TAB PO DAILY for 7 Days, #7 TAB Scheduled Levofloxacin Hemihydrate (Levofloxacin), 1 TAB PO DAILY Discharge Statement: "Patient was advised to return to the ER or call 911 if any headaches, dizziness, shortness of breath, chest pain, abdominal pain, bleeding, fevers, or worsening of medical condition. Patient was counseled about treatment plan, medications, possible side effects, patientverbalized understanding. All questions were answered to the best of my ability. This discharge took greater then 30 minutes in planning, reviewing documentation, counseling the patient, and discussing with other team members." ASSESSMENT ASSESSMENT Assessment ACUTE RESPIRATORY FAILURE PNEUMONIA Date of Service: Sep 24, 2025 Billing Provider: BRET STEWART MD Common Visit Codes: [id number]/OBS DISCH DAY >30min CHAYA PURCELL RESIDENT Sep 24, 2025 11:52
[2025-09-24 16:26] LABS: Free T3 2.67 pg/mL (2.3-4.2)
[2025-09-24 16:27] LABS: Free T4 (Free Thyroxine) 1.02 ng/dL (0.89-1.76)
== END 2025-09-24 11:50 | disposition home or self-care (01) | DRG 720 ==
LOC: ER 15:12 → OVERFLOW 21:20 → TELE-CENTR 21:56
PROVIDERS: ADMIT Internal Medicine Geriatric Medicine; ATTEND Internal Medicine Geriatric Medicine
DX: A41.50 Gram-negative sepsis, unspecified (principal); N17.0 Acute kidney failure with tubular necrosis; J96.01 Acute respiratory failure with hypoxia; J15.69 Pneumonia due to other Gram-negative bacteria; J15.9 Unspecified bacterial pneumonia; F12.10 Cannabis abuse, uncomplicated; Z20.822 Contact with and (suspected) exposure to COVID-19; E87.6 Hypokalemia; E83.42 Hypomagnesemia; F41.9 Anxiety disorder, unspecified; E87.20 Acidosis, unspecified
CPT/HCPCS: 36415; 71045; 71250; 80048; 80053; 80076; 80307; 81001; 83605; 83735; 83880; 84439; 84443; 84481; 84484; 84702; 85025; 87040; 87426; 87804; 93005; 94640; 96365; 96368; 96375; 99291; G0378; J2405; J2470; J3480

== ENCOUNTER 2025-09-25 10:30 | Emergency (ER) | payer MEDICAID ==
[~2025-09-25] VITALS: Ht 170.2 cm; Wt 58.4 kg
[~2025-09-25 10:30] MED LIST: LEVO750T40 PO
[2025-09-25 10:32] VITALS: BP 122/91; RESP 15; TEMP 98.4; O2SAT 99
[2025-09-25 10:42] VITALS: PULSE 78
--- NOTE | 2025-09-25 11:20 | ED.PDOC ---
History of Present Illness HPI Comments 34-year-old female presents to the ER with a chief complaint of dizziness. Patient reports on being admitted into the ER on 09/22/2025 in leaving AMA yesterday, due from fear of needles. Patient stated that she was diagnosed with ammonia and sepsis via pneumonia. Patient states that her chest pain and hema rtness a breath has currently subsided for which she had when she originally came in on 09/22/2025. Patient came today due from having generalized weakness associated with N/V x1 episode today and throwing away her prescribed meds. Denies any other symptoms at this time. Denies chills, fever, N/V/D, SOB, CP. No other associated symptoms, modifiers, recent injuries or sick contacts present at this time. Chief Complaint: Dizziness Time Seen by MD: 11:20 Reviewed Notes: Nurses Notes, Medications, Allergies Allergies: Coded Allergies: NO KNOWN ALLERGIES (Unverified , 09/22/25) Home Meds Active Scripts Levofloxacin Hemihydrate (LEVOFLOXACIN) 750 Mg Tab, 1 TAB PO DAILY for 7 Days, #7 TAB Prov:JOHANNA VILLAGRAN RESIDENT 09/24/25 Information Source: Patient Mode of Arrival: Ambulatory Severity: Moderate Timing: Days Duration: Since onset, Days Prehospital treatment: None Past Medical History PAST MEDICAL HISTORY: Denies Surgical History: Denies all surgeries SURGICAL SERVICES TECH History: Denies all SURGICAL SERVICES TECH Hx Family History Family History: Reviewed,noncontributory to illness, Unknown Social History Smoker: Non-Smoker Alcohol: Denies ETOH Use Drugs: Denies Drug Use Lives In: Home Constitutional: reports: weakness; denies: chills, diaphoresis, fatigue, fever, malaise, sweats, others EENTM: denies: blurred vision, double vision, ear bleeding, ear discharge, ear drainage, ear pain, ear ringing, eye pain, eye redness, hearing loss, mouth pain, mouth swelling, nasal discharge, nose bleeding, nose congestion, nose pain, photophobia, tearing, throat pain, throat swelling, voice changes, others Respiratory: denies: cough, hemoptysis, orthopnea, SOB at rest, shortness of breath, SOB with excertion, stridor, wheezing, others Cardiovascular: denies: chest pain, dizzy spells, diaphoresis, Dyspnea on exertion, edema, irregular heart beat, left arm pain, lightheadedness, palpi tations, PND, syncope, others Gastrointestinal: reports: nausea, vomiting; denies: abdomen distended, abdominal pain, blood streaked bowels, constipated, diarrhea, dysphagia, difficulty swallowing, hematemesis, melena, poor appetite, poor fluid intake, rectal bleeding, rectal pain, others Genitourinary: denies: abnormal vagina bleeding, burning, dyspareunia, dysuria, flank pain, frequency, hematuria, incontinence, pain, , vagina discharge, urgency, others Neurological: denies: dizziness, fainting, headache, left sided numbness, left sided weakness, numbness, paresthesia, pre-existing deficit, right sided numbness, right sided weakness, seizure, speech problems, tingling, tremors, weakness, others Musculoskeletal: denies: back pain, gout, joint pain, joint swelling, muscle pain, muscle stiffness, neck pain, others Integumetry: denies: bruises, change in color, change in hair/nails, dryness, laceration, lesions, lumps, rash, wounds, others Allergic/Immunocompromised: denies: Difficulty Healing, Frequent Infections, Hives, Itching, others Hematologic/Lymphatic: denies: anemia, blood clots, easy bleeding, easy bruising, swollen glands, others Endocrine: denies: excessive hunger, excessive sweating, excessive thirst, excessive urination, flushing, intolerance to cold, intolerance to heat, unexp lained weight gain, unexplained weight loss, others Psychiatric: denies: anxiety, bipolar disorder, depression, hopeless, panic disorder, schizophrenia, sleepless, suicidal, others All Other Systems: Reviewed and Negative Physical Exam General Appearance: Mild Distress HEENT: Pale Conjuntivae (L), Pale Conjuntivae (R), Pharynx Normal, TMs Normal Neck: Full Range of Motion, Non-Tender, Normal, Normal Inspection Respiratory: Chest Non-Tender, Lungs Clear, No Accessory Muscle Use, No Respiratory Distress, Normal Breath Sounds Cardiovascular: No Edema, No JVD, No Murmur, No Gallop, Normal Peripheral Pulses, Regular Rate/Rhythm Breast Exam: Deferred Gastrointestinal: No Organomegaly, Non Tender, No Pulsatile Mass, Normal Bowel Sounds, Soft Genitalia: Deferred Pelvic: Deferred Rectal: Deferred Extremities: No calf tenderness, Normal capillary refill, Normal inspection, Normal range of motion, Non-tender, No pedal edema Musculoskeletal : Apperance: Normal Neurologic: Alert, 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 Was a procedure done?: No Differential Dx Considerations may include: Generalized weakness, pneumonia, viral syndrome X-Ray, Labs, Meds, VS Vital Signs Date Time Temp Pulse Resp B/P (MAP) Pulse Ox O2 Delivery O2 Flow Rate FiO2 09/25/25 10:42 78 09/25/25 10:32 98.4 79 15 122/91 99 98.4 IMPRESSION: No acute intrathoracic abnormality. We attempted to get further testing on this patient but it seems that the patient has eloped from the department's We attempted to call the patient again but the patient has eloped Images Reviewed?: Images reviewed and evaluated by me Time of 1ST Reevaluation: 11:50 Reevaluation 1ST: Unchanged Patient Education/Counseling: Diagnosis, Treatment, Prognosis Family Education/Counseling: No Family Present SEPSIS Sepsis Screen Date sepsis recognized/suspect: Sep 25, 2025 Time Sepsis recognized/suspect: 1035 Recent Procedure: No On Antibiotic Therapy: No Respiratory Rate >20: No Heart Rate >90: No Temp<36 C (96.8 F) or >38.3 C: No SBP <90 or MAP <65 mmHG: No New Acute Mental Status Change: No Is the patient on CPAP, BIPAP,: No Physician Orders Electrocardigram (09/25/25 10:37) Chest Two Views Routine (09/25/25 11:16) Urinalysis (09/25/25 11:16) Vital Signs Date Time Temp Pulse Resp B/P (MAP) Pulse Ox O2 Delivery O2 Flow Rate FiO2 09/25/25 10:42 78 09/25/25 10:32 98.4 79 15 122/91 99 98.4 Departure 1 Departure Time of Disposition: 13:26 Impression: Primary Impression: Viral syndrome Disposition: 07 LEFT AWOL/ELOPED Condition: Fair Critical Care Note Critical Care Time?: No Stability Stability form required: No Heart Score Heart Score: Heart Score Response (Comments) Value History N/A 0 EKG N/A 0 Age N/A 0 Risk Factors N/A 0 Troponin N/A 0 Total 0 I personally scribed for YOLA STEVENS MD ([email or web address]) on 09/25/25 at 11:20. Electronically submitted by Fili Ayoub ([employer]). I personally scribed for YOLA STEVENS MD ([email or web address]) on 09/25/25 at 12:13. Electronically submitted by Fili Ayoub ([employer] [facility]). YOLA STEVENS MD Sep 25, 2025 11:20
--- NOTE | 2025-09-25 12:01 | DVH ---
XY CHEST TWO VIEWS ROUTINE, HISTORY: weakness COMPARISON: CT CHEST WITHOUT CONTRAST on DOS: 09/22/25, XY CHEST PORTABLE on DOS: 09/22/25 CT CHEST WITHOUT CONTRAST on DOS: 09/22/25, XY CHEST PORTABLE on DOS: 09/22/25 TECHNICAL DATA: 2 view of the chest was obtained. FINDINGS: Lines and tubes: None Cardiomediastinal silhouette: normal Pulmonary vasculature: normal Lung expansion: normal Lung airspace: normal Lung interstitium: normal Pleura: normal Pneumothorax: no Bones: Unremarkable Other: no IMPRESSION: No acute intrathoracic abnormality.
[2025-09-25] MEDS: ONDANSETRON ODT 4 MG TAB PO ONE (13:09)
--- NOTE | 2025-09-25 18:32 | ECG ---
[facility] Test Date: 2025-09-25 Test Time: 10:42:20 Pat Name: MARLINE LLANES Department: Room: Gender: F [employer]: PAOLA : 1990 Requested By: PAT WHITAKER Order Number: [id number] Reading MD: Gus Woods Measurements Intervals [place] Rate: 78 P: 77 GA: 134 QRS: 87 QRSD: 81 T: -61 QT: 338 QTc: 385 Interpretive Statements Sinus arrhythmia Probable left atrial enlargement Borderline T abnormalities, diffuse leads Baseline wander in lead(s) V2 Electronically Signed On 09-30-2025 10:08:28 PST by Gus Woods Please click the below link to view image of tracing.
== END 2025-09-25 13:09 | disposition left against medical advice (07) ==
LOC: ER 10:36
DX: B34.9 Viral infection, unspecified (principal); R42 Dizziness and giddiness; Z79.899 Other long term (current) drug therapy
CPT/HCPCS: 71046; 93005